=== PATIENT | male | born 1995 | race Caucasian/White ===

== ENCOUNTER 2016-09-20 19:05 | Emergency (ER) | payer OTHER ==
--- NOTE | 2016-09-20 21:43 | ED ---
Throat Pain/Nasal Congestion - HPI Summary HPI Summary: 21M presents with recurrent strept infections in the past month. He was initially on zpack for first infection and then he was placed on clindamycin when he started to notice some joint pain. The doctor told him that his joint pain should have get better after he finished his course of clindamycin but he states that it has gotten worst. He also admits to night sweats saying that he wakes up drenched. He admits to decrease in appetite and to 20 lbs of unintentional weight loss. He admits to generalized lymphadenopathy of neck, right arm pit and groin. He said that his monospot was negative but they have been treating him like he has mono as he has splenomegaly. He is following up with his uncle who is an oncologist due to have a strong family history of Hodgkin lymphoma. He states that today he has been having intermittent chest pain with SOB with it. He states that deep breathing makes it worst. 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 He states that his knees and hips hurt him the most but all of his joints hurt. He denies any abdominal pain or sore throat currently. He states that his uncle was concerned for rheumatic fever. - History of Current Complaint Chief Complaint: EDGeneral Time Seen by Provider: 09/20/16 20:17 - Allergies/Home Medications Allergies/Adverse Reactions: Allergies Allergy/AdvReac Type Severity Reaction Status Date / Time Penicillins [PCN] Allergy Unknown Verified 09/20/16 19:17 Reaction Details PMH/Surg Hx/FS Hx/Imm Hx Endocrine/Hematology History: Denies: Hx Anticoagulant Therapy Cardiovascular History: Denies: Hx Hypertension - Immunization History Date of Tetanus Vaccine: utd Date of Influenza Vaccine: utd Infectious Disease History: No Infectious Disease History: Denies: Traveled Outside the [place] in Last 30 Days - Family History Known Family History: Positive: Other - lymphoma - Social History Alcohol Use: None Substance Use Type: Reports: None Smoking Status (MU): Never Smoked Tobacco Review of Systems Positive: Other - night sweats Positive: Other - lymphadenopathy. Negative: Sore Throat Positive: Chest Pain Positive: Shortness Of Breath Positive: Myalgia - joint pain All Other Systems Reviewed And Are Negative: Yes Physical Exam Triage Information Reviewed: Yes Vital Signs On Initial Exam: Initial Vitals Temp Pulse Resp Pulse Ox 97.5 F 69 16 99 09/20/16 19:05 09/20/16 19:05 09/20/16 19:05 09/20/16 19:05 Vital Signs Reviewed: Yes Appearance: Positive: Well-Appearing Skin: Positive: Warm, Dry Head/Face: Positive: Normal Head/Face Inspection Eyes: Positive: Normal, Conjunctiva Clear ENT: Positive: Normal ENT inspection, Pharynx normal, TMs normal Neck: Positive: Enlarged Nodes @ - all neck lymph nodes and right arm pit Respiratory/Lung Sounds: Positive: Clear to Auscultation, Breath Sounds Present Cardiovascular: Positive: Normal, RRR Abdomen Description: Positive: Nontender, Soft Bowel Sounds: Positive: Present - Griffin Coma Scale Coma Scale Total: 15 Diagnostics - Vital Signs Vital Signs Temp Pulse Resp BP Pulse Ox 09/20/16 19:10 97.5 F 69 16 148/63 99 09/20/16 19:05 97.5 F 69 16 99 - Laboratory Result Diagrams: 09/20/16 21:30 09/20/16 21:30 Lab Statement: Any lab studies that have been ordered have been reviewed, and results considered in the medical decision making process. - EKG No standard instances Cardiac Rate: Bradycardia EKG Rhythm: Sinus Rhythm EKG Interpretation: incomplete RBBB normal for patient EENT Course/Dx - Course Course Of Treatment: 21M presents with recurrent strept infections with last dose of clindamycin 09/15. admits to joint pain, night sweats, weight loss, decreases in appetite, and generalized lymph adenopathy. he has family history of lymphoma. on exam no joints are noted to be red or swollen. no rash is not on exam. no murmur heard on exam. had chest xray done thursday and was normal. EKG normal for him as had previous RBBB. labs: wbc 5, crp<.2, CPK normal, ESR 7. troponin normal. does not met moraes criteria for rheumatic fever as joints do not appear inflammed, no rash present, ESR/CRP normal. spoke with dr granados and she agrees that lab do not suggest rheumatic fever but that should have follow up for lymphadenopathy for potential for lymphoma. explained chest pain is likely costrochondritis so should take ibuprofen for it as labs normal. patient understands and agrees with plan - Differential Diagnoses Differential Diagnoses: Other - mono, lymphoma, rheumatic fever - Diagnoses Provider Diagnoses: Generalized lymphadenopathy, Joint pain, Night sweats, Chest wall pain Discharge - Discharge Plan Condition: Stable Disposition: HOME Patient Education Materials: Lymphadenopathy (ED) Referrals: Non Staff,Doctor [Primary Care Provider] - [facility] @ [Outside] Additional Instructions: Follow up with oncology about generalized lymphadenopathy for further work up Take Tylenol or ibuprofen for joint pain and chest pain every 6 hours Return to ED if develop any new or worsening symptoms
[2016-09-20 21:46] LABS: Hematocrit 47 % (42-52); Hemoglobin 15.7 g/dl (14.0-18.0); Mean Corpuscular HGB Conc 33 g/dl (31-36); Mean Corpuscular Hemoglobin 30 pg (27-31); Mean Corpuscular Volume 91 fL (80-94); Mean Platelet Volume 9 um3 (7.4-10.4); Red Blood Count 5.22 10^6/ul (4.0-5.4); Red Cell Distribution Width 13 % (10.5-15); White Blood Count 6.3 10^3/ul (3.5-10.8)
[2016-09-20 22:02] LABS: ALT 11 U/L (7-52); AST 17 U/L (13-39); Albumin 4.5 g/dL (3.2-5.2); Alkaline Phosphatase 44 U/L (34-104); Anion Gap 6 mmol/L (2-11); BUN/Creatinine Ratio 18.3 (8-20); Blood Urea Nitrogen 17 mg/dL (6-24); CO2 Carbon Dioxide 29 mmol/L (22-32); Calcium 9.6 mg/dL (8.6-10.3); Chloride 102 mmol/L (101-111); Creatine Kinase 79 U/L (10-223); EGFR African American 133.2 (>60); EGFR Non-African American 103.6 (>60); Globulin 2.7 g/dL (2-4); Glucose 95 mg/dL (70-100); Potassium 3.8 mmol/L (3.5-5.0); Sodium 137 mmol/L (133-145); Total Protein 7.2 g/dL (6.4-8.9)
[2016-09-20 22:48] LABS: Erythrocyte Sed Rate 7 mm/Hr (0-14)
[2016-09-20 23:05] VITALS: BP 128/70
== END 2016-09-20 23:04 | disposition home or self-care (01) ==
LOC: ED 19:05
DX: R59.1 Generalized enlarged lymph nodes (principal); R07.89 Other chest pain; M25.50 Pain in unspecified joint; R06.02 Shortness of breath; R61 Generalized hyperhidrosis
CPT/HCPCS: 36415; 80053; 82550; 83605; 84484; 85025; 85652; 86141; 93005; 99282

== ENCOUNTER → 2016-10-30 02:32 | Emergency (ER) | payer OTHER ==
[2016-10-30 03:00] VITALS: BP 128/79
[2016-10-30 04:29] LABS: Urine Bilirubin Negative (Negative); Urine Glucose Negative (Negative); Urine Nitrite Negative (Negative)
[2016-10-30 04:32] LABS: Benzodiazepine Urine Screen None Detected (None Detect)
[2016-10-30 05:21] LABS: Hematocrit 45 % (42-52); Hemoglobin 15.1 g/dl (14.0-18.0); Mean Corpuscular HGB Conc 34 g/dl (31-36); Mean Corpuscular Hemoglobin 30 pg (27-31); Mean Corpuscular Volume 89 fL (80-94); Mean Platelet Volume 10 um3 (7.4-10.4); Red Blood Count 5.03 10^6/ul (4.0-5.4); Red Cell Distribution Width 13 % (10.5-15); White Blood Count 7.3 10^3/ul (3.5-10.8)
[2016-10-30 05:44] LABS: Albumin 4.5 g/dL (3.2-5.2); BUN/Creatinine Ratio 14.7 (8-20); Calcium 9.5 mg/dL (8.6-10.3); EGFR Non-African American 101.1 (>60); Globulin 2.7 g/dL (2-4); Potassium 3.3 mmol/L (3.5-5.0); Total Bilirubin 1.2 mg/dL (0.2-1.0); Total Protein 7.2 g/dL (6.4-8.9)
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
[2016-10-30 12:27] LABS: Manual Entry Verification GRE0060; Rapid HIV INT CONT QC Line Present; Rapid HIV Kit Lot# F336002
== END | disposition home or self-care (01) ==
LOC: ED 02:32
DX: T74.21XA Adult sexual abuse, confirmed, initial encounter (principal); R41.82 Altered mental status, unspecified; F10.129 Alcohol abuse with intoxication, unspecified; R11.0 Nausea
CPT/HCPCS: 36415; 80053; 80307; 80320; 81003; 83605; 85025; 86703; 86706; 86803; 87340; 99281; G0480

== ENCOUNTER 2017-04-14 22:06 | Emergency (ER) | payer OTHER ==
[2017-04-14] MEDS ORDERED: Aspirin Low Dose CHEW TAB* 81 MG PO ONE (23:44)
[2017-04-15 00:44] LABS: Albumin 4.3 g/dL (3.2-5.2); BUN/Creatinine Ratio 15.6 (8-20); Calcium 9.1 mg/dL (8.6-10.3); EGFR African American 110.9 (>60); EGFR Non-African American 86.2 (>60); Globulin 2.2 g/dL (2-4); Magnesium 1.9 mg/dL (1.9-2.7); Potassium 3.9 mmol/L (3.5-5.0); Total Bilirubin 2.2 mg/dL (0.2-1.0); Total Protein 6.5 g/dL (6.4-8.9)
[2017-04-15 02:56] LABS: Hematocrit 44 % (42-52); Hemoglobin 14.5 g/dl (14.0-18.0); Mean Corpuscular HGB Conc 33 g/dl (31-36); Mean Corpuscular Hemoglobin 30 pg (27-31); Mean Corpuscular Volume 91 fL (80-94); Mean Platelet Volume 9 um3 (7.4-10.4); Red Blood Count 4.85 10^6/ul (4.0-5.4); Red Cell Distribution Width 14 % (10.5-15); White Blood Count 6.6 10^3/ul (3.5-10.8)
[2017-04-15 04:10] VITALS: BP 114/64
--- NOTE | 2017-04-15 07:48 | RAD ---
INDICATION: Chest pain COMPARISON: Similar chest x-ray September 18, 2016 TECHNIQUE: PA and lateral views of the chest were obtained. FINDINGS: The heart and mediastinum are normal in size and contour. The lungs are grossly clear. There is no evidence of large pleural effusion. Visualized bones are normal for the patient's age. There is no radiographic evidence of free air beneath the diaphragm IMPRESSION: No radiographic evidence of acute cardiopulmonary disease.
--- NOTE | 2017-04-16 04:24 | ED ---
Chago Augustine Benjamin, scribed for Minnie Taylor MD on 04/14/17 at 2356 . HPI Chest Pain - HPI Summary HPI Summary: 21yo male c/o left anterior chest pain that radiates to left shoulder. Pain started at 6pm and pain has been constant but intermittently worsening. Pt describes the pain as sharp stabbing at left anterior and dull pain at left shoulder. 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 His BP at home was 190/90 and pulse of 78bpm. Pt also had SOB, N/V earlier but now resolved. 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 Denies cough or sore throat. No prior hx of CP. Hx of RBBB for 4 years. Pt has vitamin D deficiency and takes vitamin D supplements. Pt had a cardiac Echo last summer. 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 No alcohol. No substance abuse. No tobacco. Pt states his RBBB was discovered incidentally when he was learning to do EKG's and an EKG was done on him for demonstration purposes and found to show RBBB. Medication list: Vitamin D 5000mg Effexor for PTSD. - History of Current Complaint Chief Complaint: EDChestPainROMI Time Seen by Provider: 04/14/17 23:17 Hx Obtained From: Patient Onset/Duration: Started Hours Ago, Still Present Timing: Constant Initial Severity: Moderate Current Severity: Moderate Pain Intensity: 10 Pain Scale Used: 0-10 Numeric Chest Pain Location: Left Anterior Chest Pain Radiates: Yes Chest Pain Radiates To:: Shoulder - left Character: Dull/Aching, Sharp/Stabbing Aggravating Factor(s): Nothing Alleviating Factor(s): Nothing Associated Signs and Symptoms: Positive: Shortness of Breath, Nausea, Vomiting. Negative: Cough - Allergy/Home Medications Allergies/Adverse Reactions: Allergies Allergy/AdvReac Type Severity Reaction Status Date / Time No Known Allergies Allergy Verified 04/14/17 22:11 PMH/Surg Hx/FS Hx/Imm Hx Previously Healthy: No - RBBB Endocrine/Hematology History: Denies: Hx Anticoagulant Therapy Cardiovascular History: Denies: Hx Hypertension - Surgical History Surgery Procedure, Year, and Place: none - Immunization History Date of Tetanus Vaccine: utd Date of Influenza Vaccine: utd Infectious Disease History: No Infectious Disease History: Denies: Traveled Outside the US in Last 30 Days - Family History Known Family History: Positive: Other - Hodgkins lymphoma (mother) - Social History Occupation: Employed Full-time Alcohol Use: None Substance Use Type: Reports: None Smoking Status (MU): Never Smoked Tobacco Review of Systems Constitutional: Negative Eyes: Negative ENT: Negative Positive: Chest Pain Positive: Shortness Of Breath Positive: Vomiting, Nausea Genitourinary: Negative Positive: no symptoms reported Musculoskeletal: Negative Skin: Negative Neurological: Negative Psychological: Normal All Other Systems Reviewed And Are Negative: Yes Physical Exam Triage Information Reviewed: Yes Vital Signs On Initial Exam: Initial Vitals Temp Pulse Resp BP Pulse Ox 97.4 F 83 18 157/81 97 04/14/17 22:07 04/14/17 22:07 04/14/17 22:07 04/14/17 22:07 04/14/17 22:07 Vital Signs Reviewed: Yes Appearance: Positive: Well-Appearing, Well-Nourished, Pain Distress - mild. Negative: No Pain Distress Skin: Positive: Warm, Skin Color Reflects Adequate Perfusion Head/Face: Positive: Normal Head/Face Inspection Eyes: Positive: Conjunctiva Clear ENT: Positive: Normal ENT inspection Neck: Positive: Supple Respiratory/Lung Sounds: Positive: Clear to Auscultation, Breath Sounds Present Cardiovascular: Positive: RRR, Pulses are Symmetrical in both Upper and Lower Extremities. Negative: Murmur Abdomen Description: Positive: Nontender, Soft Bowel Sounds: Positive: Present Musculoskeletal: Positive: Strength/ROM Intact Neurological: Positive: Sensory/Motor Intact, Alert, Oriented to Person Place, Time, Facial Symmetry, Speech Normal Psychiatric: Positive: Affect/Mood Appropriate - [place] Coma Scale Coma Scale Total: 15 Diagnostics - Vital Signs Vital Signs Temp Pulse Resp BP Pulse Ox 04/14/17 22:07 97.4 F 83 18 157/81 97 - Laboratory Lab Results: Lab Results 04/14/17 04/14/17 04/14/17 Range/Units 00:08 00:08 00:08 WBC 6.6 (3.5-10.8) 10^3/ul RBC 4.85 (4.0-5.4) 10^6/ul Hgb 14.5 (14.0-18.0) g/dl Hct 44 (42-52) % MCV 91 (80-94) fL MCH 30 (27-31) pg MCHC 33 (31-36) g/dl RDW 14 (10.5-15) % Plt Count 150 (150-450) 10^3/ul MPV 9 (7.4-10.4) um3 Neut % (Auto) 53.0 (38-83) % Lymph % (Auto) 35.2 (25-47) % [place] % (Auto) 8.9 (1-9) % Eos % (Auto) 2.1 (0-6) % Baso % (Auto) 0.8 (0-2) % Absolute Neuts (auto) 3.5 (1.5-7.7) 10^3/ul Absolute Lymphs (auto) 2.3 (1.0-4.8) 10^3/ul Absolute Monos (auto) 0.6 (0-0.8) 10^3/ul Absolute Eos (auto) 0.1 (0-0.6) 10^3/ul Absolute Basos (auto) 0.1 (0-0.2) 10^3/ul Absolute Nucleated RBC 0.01 10^3/ul Nucleated RBC % 0.2 INR (Anticoag Therapy) 1.06 (0.89-1.11) D-Dimer, Quantitative < 200 (Less Than 230) ng/mL Sodium 136 (133-145) mmol/L Potassium 3.9 (3.5-5.0) mmol/L Chloride 105 (101-111) mmol/L Carbon Dioxide 26 (22-32) mmol/L Anion Gap 5 (2-11) mmol/L BUN 17 (6-24) mg/dL Creatinine 1.09 (0.67-1.17) mg/dL Est GFR ( Amer) 110.9 (>60) Est GFR (Non-Af Amer) 86.2 (>60) BUN/Creatinine Ratio 15.6 (8-20) Glucose 102 H (70-100) mg/dL Lactic Acid (0.5-2.0) mmol/L Calcium 9.1 (8.6-10.3) mg/dL Magnesium 1.9 (1.9-2.7) mg/dL Total Bilirubin 2.20 H (0.2-1.0) mg/dL AST 14 (13-39) U/L ALT 9 (7-52) U/L Alkaline Phosphatase 38 (34-104) U/L Total Creatine Kinase 86 (10-223) U/L CK-MB (CK-2) 1.3 (0.6-6.3) ng/mL Troponin I 0.00 (<0.04) ng/mL Total Protein 6.5 (6.4-8.9) g/dL Albumin 4.3 (3.2-5.2) g/dL Globulin 2.2 (2-4) g/dL Albumin/Globulin Ratio 2.0 (1-3) TSH 3.00 (0.34-5.60) mcIU/mL 04/14/17 04/15/17 Range/Units 03:00 03:00 WBC (3.5-10.8) 10^3/ul RBC (4.0-5.4) 10^6/ul Hgb (14.0-18.0) g/dl Hct (42-52) % MCV (80-94) fL MCH (27-31) pg MCHC (31-36) g/dl RDW (10.5-15) % Plt Count (150-450) 10^3/ul MPV (7.4-10.4) um3 Neut % (Auto) (38-83) % Lymph % (Auto) (25-47) % [place] % (Auto) (1-9) % Eos % (Auto) (0-6) % Baso % (Auto) (0-2) % Absolute Neuts (auto) (1.5-7.7) 10^3/ul Absolute Lymphs (auto) (1.0-4.8) 10^3/ul Absolute Monos (auto) (0-0.8) 10^3/ul Absolute Eos (auto) (0-0.6) 10^3/ul Absolute Basos (auto) (0-0.2) 10^3/ul Absolute Nucleated RBC 10^3/ul Nucleated RBC % INR (Anticoag Therapy) (0.89-1.11) D-Dimer, Quantitative (Less Than 230) ng/mL Sodium (133-145) mmol/L Potassium (3.5-5.0) mmol/L Chloride (101-111) mmol/L Carbon Dioxide (22-32) mmol/L Anion Gap (2-11) mmol/L BUN (6-24) mg/dL Creatinine (0.67-1.17) mg/dL Est GFR ( Amer) (>60) Est GFR (Non-Af Amer) (>60) BUN/Creatinine Ratio (8-20) Glucose (70-100) mg/dL Lactic Acid 0.5 (0.5-2.0) mmol/L Calcium (8.6-10.3) mg/dL Magnesium (1.9-2.7) mg/dL Total Bilirubin (0.2-1.0) mg/dL AST (13-39) U/L ALT (7-52) U/L Alkaline Phosphatase (34-104) U/L Total Creatine Kinase (10-223) U/L CK-MB (CK-2) (0.6-6.3) ng/mL Troponin I 0.00 (<0.04) ng/mL Total Protein (6.4-8.9) g/dL Albumin (3.2-5.2) g/dL Globulin (2-4) g/dL Albumin/Globulin Ratio (1-3) TSH (0.34-5.60) mcIU/mL Result Diagrams: 04/14/17 00:08 04/14/17 00:08 Lab Statement: Any lab studies that have been ordered have been reviewed, and results considered in the medical decision making process. - Radiology CXR Xray Interpretation: No Acute Changes Radiology Interpretation Completed By: ED Physician - EKG 2211 Cardiac Rate: NL - 67bpm EKG Rhythm: Sinus Rhythm ST Segment: Non-Specific Ectopy: None EKG Interpretation: Normal AV, prolonged IVCT, RBBB, nl QTC, and nl [place]. Non STEMI. EKG Comparison: Other - none, but pt states RBBB is old Re-Evaluation - Re-Evaluation First Eval Re-Evaluation Time: 03:52 Change: Improved Comment: Final BP and HR was 118/61 and 60bpm. Pt denies any CP at the time. Informed pt's lab results and discharged instructions. Chest Pain Course/Dx - Course Course Of Treatment: Reviewed pts medication and allergy lists. High Blood pressure noted. - Chest Pain Differential Diagnosis/HQI/PQRI: ACS, Chest Wall, GI Disease, Lower Respiratory Infection - Diagnoses Provider Diagnoses: Chest pain, Elevated blood pressure reading without diagnosis of hypertension Discharge - Discharge Plan Condition: Stable Disposition: HOME Patient Education Materials: Chest Pain (ED) Forms: *Work Release [facility] - [facility] [place] PHYSICIAN REFERRAL [Outside] Additional Instructions: PLEASE FOLLOW UP WITH YOUR SECURITY SYSTEMS ENGINEER. YOUR BILIRUBIN WAS ELEVATED TONIGHT, 2.20, HOWEVER THE REST OF THE LIVER FUNCTION TESTS WERE IN NORMAL RANGE. YOUR ELEVATED BILIRUBIN MAY BE DUE TO GILBERTS SYNDROME. RETURN TO EMERGENCY DEPARTMENT FOR ANY NEW OR WORSENING SYMPTOMS. The documentation as recorded by the Chago nelson Benjamin accurately reflects the service I personally performed and the decisions made by , Minnie Taylor MD.
== END 2017-04-15 04:08 | disposition home or self-care (01) ==
LOC: ED 22:06
DX: R07.9 Chest pain, unspecified (principal); R03.0 Elevated blood-pressure reading, without diagnosis of hypertension; R06.02 Shortness of breath; R11.2 Nausea with vomiting, unspecified
CPT/HCPCS: 36415; 71020; 80053; 82550; 82553; 83605; 83735; 84443; 84484; 85025; 85379; 85610; 93005; 99283; A9270-GY

== ENCOUNTER 2017-04-28 17:51 | Inpatient (IN) | payer OTHER ==
[2017-04-28 19:01] LABS: Hematocrit 47 % (42-52); Hemoglobin 15.5 g/dl (14.0-18.0); Mean Corpuscular HGB Conc 33 g/dl (31-36); Mean Corpuscular Hemoglobin 30 pg (27-31); Mean Corpuscular Volume 91 fL (80-94); Mean Platelet Volume 9 um3 (7.4-10.4); Red Blood Count 5.18 10^6/ul (4.0-5.4); Red Cell Distribution Width 14 % (10.5-15); White Blood Count 7.7 10^3/ul (3.5-10.8)
[2017-04-28 19:19] LABS: Anion Gap 6 mmol/L (2-11); BUN/Creatinine Ratio 15.1 (8-20); Blood Urea Nitrogen 16 mg/dL (6-24); CO2 Carbon Dioxide 28 mmol/L (22-32); Chloride 103 mmol/L (101-111); Glucose 95 mg/dL (70-100); Potassium 4.3 mmol/L (3.5-5.0); Sodium 137 mmol/L (133-145)
[2017-04-28 19:20] LABS: ALT 8 U/L (7-52); AST 14 U/L (13-39); Albumin 4.7 g/dL (3.2-5.2); Alkaline Phosphatase 37 U/L (34-104); Calcium 9.7 mg/dL (8.6-10.3); EGFR African American 114.5 (>60); EGFR Non-African American 89.1 (>60); Globulin 2.4 g/dL (2-4); Total Protein 7.1 g/dL (6.4-8.9)
[2017-04-28 19:22] LABS: Urine Bilirubin Negative (Negative); Urine Glucose Negative (Negative); Urine Nitrite Negative (Negative)
[2017-04-28 19:45] LABS: Benzodiazepine Urine Screen None Detected (None Detect)
[2017-04-28 19:45] LABS: Acetaminophen < 15 mcg/mL; Alcohol < 10 mg/dL (<10); Salicylate < 2.50 mg/dL (<30)
[2017-04-28 19:59] LABS: TSH (Thyroid Stimulating Horm) 1.51 mcIU/mL (0.34-5.60)
--- NOTE | 2017-04-29 06:33 | ED ---
Danielle Augustine Alfonso, scribed for Huan Barriga MD on 04/28/17 at 1944 . Psychiatric Complaint - HPI Summary HPI Summary: This patient is a 21 year old M brought in by police 941 to [facility] with a chief complaint of SI earlier today. He reports the SI is currently resolved. The patient rates the pain 0/10 in severity. Patient denies HI, abdominal pain, scleral icterus, and substance use today. - History Of Current Complaint Chief Complaint: EDMentalHealth Time Seen by Provider: 04/28/17 18:36 Hx Obtained From: Patient Onset/Duration: Gradual Onset, Resolved Timing: Constant Has Suicidal: Reports: Thoughts Has Homicidal: Denies: Thoughts - Allergies/Home Medications Allergies/Adverse Reactions: Allergies Allergy/AdvReac Type Severity Reaction Status Date / Time No Known Allergies Allergy Verified 04/14/17 22:11 Home Medications: Home Medications Venlafaxine EXT RELEASE CAP* [Effexor Xr CAP*] 37.5 mg PO QAM 04/28/17 [History Confirmed 04/28/17] lamoTRIgine TAB(*) [LaMICtal TAB(*)] 37.5 mg PO BEDTIME 04/28/17 [History Confirmed 04/28/17] PMH/Surg Hx/FS Hx/Imm Hx Endocrine/Hematology History: Denies: Hx Anticoagulant Therapy Cardiovascular History: Reports: Other Cardiovascular Problems/Disorders - RIGHT BUNDLE BRANCH BLOCK Denies: Hx Hypertension Sensory History: Denies: Hx Deafness Opthamlomology History: Denies: Hx Legally Blind EENT History: Denies: Hx Deafness - Surgical History Surgery Procedure, Year, and Place: none - Immunization History Date of Tetanus Vaccine: UTD Date of Influenza Vaccine: NO Infectious Disease History: No Infectious Disease History: Denies: Traveled Outside the US in Last 30 Days - Family History Known Family History: Positive: Other - Hodgkins lymphoma (mother) - Social History Alcohol Use: None Hx Substance Use: No Substance Use Type: Reports: None Hx Tobacco Use: No Smoking Status (MU): Never Smoked Tobacco Review of Systems Positive: Other - Negative scleral icterus Negative: Abdominal Pain Neurological: Other - SI; negative HI, substance use today All Other Systems Reviewed And Are Negative: Yes Physical Exam - Summary Physical Exam Summary: General: well-appearing, no pain distress Skin: warm, color reflects adequate perfusion, dry Head: normal Eyes: EOMI, YAMEL ENT: normal Neck: supple, nontender Respiratory: CTA, breath sounds present Cardiovascular: RRR Abdomen: soft, nontender Bowel: present Musculoskeletal: normal, strength/ROM intact Neurological: normal, sensory/motor intact, A&O x3 Psychological: affect/mood appropriate Triage Information Reviewed: Yes Vital Signs On Initial Exam: Initial Vitals Temp Pulse Resp BP Pulse Ox 98.7 F 104 18 145/79 98 04/28/17 17:55 04/28/17 17:55 04/28/17 17:55 04/28/17 17:55 04/28/17 17:55 Vital Signs Reviewed: Yes - [place] Coma Scale Coma Scale Total: 15 Diagnostics - Vital Signs Vital Signs Temp Pulse Resp BP Pulse Ox 04/28/17 17:55 98.7 F 104 18 145/79 98 - Laboratory Lab Results: Lab Results 04/28/17 04/28/17 04/28/17 Range/Units 18:10 18:51 18:51 WBC 7.7 (3.5-10.8) 10^3/ul RBC 5.18 (4.0-5.4) 10^6/ul Hgb 15.5 (14.0-18.0) g/dl Hct 47 (42-52) % MCV 91 (80-94) fL MCH 30 (27-31) pg MCHC 33 (31-36) g/dl RDW 14 (10.5-15) % Plt Count 171 (150-450) 10^3/ul MPV 9 (7.4-10.4) um3 Neut % (Auto) 75.3 (38-83) % Lymph % (Auto) 17.8 L (25-47) % [place] % (Auto) 5.7 (1-9) % Eos % (Auto) 0.3 (0-6) % Baso % (Auto) 0.9 (0-2) % Absolute Neuts (auto) 5.8 (1.5-7.7) 10^3/ul Absolute Lymphs (auto) 1.4 (1.0-4.8) 10^3/ul Absolute Monos (auto) 0.4 (0-0.8) 10^3/ul Absolute Eos (auto) 0 (0-0.6) 10^3/ul Absolute Basos (auto) 0.1 (0-0.2) 10^3/ul Absolute Nucleated RBC 0 10^3/ul Nucleated RBC % 0 Sodium 137 (133-145) mmol/L Potassium 4.3 (3.5-5.0) mmol/L Chloride 103 (101-111) mmol/L Carbon Dioxide 28 (22-32) mmol/L Anion Gap 6 (2-11) mmol/L BUN 16 (6-24) mg/dL Creatinine 1.06 (0.67-1.17) mg/dL Est GFR ( Amer) 114.5 (>60) Est GFR (Non-Af Amer) 89.1 (>60) BUN/Creatinine Ratio 15.1 (8-20) Glucose 95 (70-100) mg/dL Calcium 9.7 (8.6-10.3) mg/dL Total Bilirubin 2.40 H (0.2-1.0) mg/dL AST 14 (13-39) U/L ALT 8 (7-52) U/L Alkaline Phosphatase 37 (34-104) U/L Total Protein 7.1 (6.4-8.9) g/dL Albumin 4.7 (3.2-5.2) g/dL Globulin 2.4 (2-4) g/dL Albumin/Globulin Ratio 2.0 (1-3) TSH Pending Urine Color Yellow Urine Appearance Clear Urine pH 5.0 (5-9) Ur Specific [place] 1.029 (1.010-1.030) Urine Protein Negative (Negative) Urine Ketones Negative (Negative) Urine Blood Negative (Negative) Urine Nitrate Negative (Negative) Urine Bilirubin Negative (Negative) Urine Urobilinogen Negative (Negative) Ur Leukocyte Esterase Negative (Negative) Urine Glucose Negative (Negative) Salicylates Pending Acetaminophen Pending Serum Alcohol Pending Result Diagrams: 04/28/17 18:51 04/28/17 18:51 Lab Statement: Any lab studies that have been ordered have been reviewed, and results considered in the medical decision making process. Course/Dx - Course Course Of Treatment: MHE PENDING AT SHIFT CHANGE. - Differential Dx/Clinical Impression Provider Diagnosis: Mental health problem Discharge - Discharge Plan Condition: Stable Disposition: OTHER Discharge Disposition Comment: . [facility] - The documentation as recorded by the Danielle nelson Alfonso accurately reflects the service I personally performed and the decisions made by me, Huan Barriga MD.
[2017-04-29] MEDS ORDERED: Al Hydrox/Mg Hydrox/Simet LIQ* 30 ML UDC PO PRN (10:19)
[2017-04-29] MEDS ORDERED: Acetaminophen TAB* 325 MG PO PRN (10:19)
--- NOTE | 2017-04-29 10:30 | CONSULT ---
Consult Consult: Mr. Felix came in on a previous shift with depression and suicidal ideation. He was medically cleared and had a MHE. They recommended involuntary admit. He is being admitted in stable condition with a diagnosis of depression with suicidal ideation.
[2017-04-29] MEDS: lamoTRIgine TAB(*) 25 MG PO SCH (13:09)
[2017-04-29] MEDS: Venlafaxine EXT RELEASE CAP* 37.5 MG PO SCH (13:09)
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
[2017-04-30] MEDS: Venlafaxine EXT RELEASE CAP* 37.5 MG PO SCH ×2 (06:37→07:21)
[2017-04-30] MEDS: lamoTRIgine TAB(*) 25 MG PO SCH ×2 (06:37→07:21)
[2017-04-30] MEDS ORDERED: Influenza VAC *QUAD* 2017-18* 0.5 ML SYRINGE IM ONE (09:00)
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
[2017-05-01] MEDS: Venlafaxine EXT RELEASE CAP* 37.5 MG PO SCH ×2 (06:34→07:41)
[2017-05-01] MEDS: lamoTRIgine TAB(*) 25 MG PO SCH ×2 (06:35→07:41)
[2017-05-01 08:11] VITALS: BP 116/63
--- NOTE | 2017-05-02 10:50 | DS ---
DISCHARGE SUMMARY: DATE OF ADMISSION: 04/29/17 DATE OF DISCHARGE: 05/01/17 REFERRING PSYCHIATRIST: Dr. Chai Hicks * (DICTATED BY DINA NELSON NP) DISCHARGE DIAGNOSES: PTSD by history, unspecified depressive disorder, rule out borderline personality disorder. CONDITION AT THE TIME OF DISCHARGE: Improved. The patient has been euthymic and appropriate in behavioral control during his inpatient hospitalization. He reports that he is looking forward to going home to [place] to visit with family over the . Also he will meet with his psychiatrist of three years, with whom he has a good rapport. Patient denies suicidal ideation or urges for self harm. We discussed his vulnerability for emotional reactivity and he is knowledgeable about various ways to start improving these. Patient is encouraged to continue to improve his honesty with himself and with his loved ones and to continue improving communication efforts. The patient had appropriate questions about medications and treatment for depression and mood dysregulation. These were answered. He has arranged transportation with his friend Mahi to return to [place] for the . Treer spoke with Mahi and with patient's mother Anjelica to validate transportation plans. MENTAL STATUS EXAM: Patient is a thin framed, healthy-appearing 21-year-old male. His hair is short with top dyed blonde. He is wearing his own clothing and well groomed. No abnormal psychomotor activity noted. He is cooperative and answers questions fully and is a good historian. He is alert and oriented x3. His concentration is good. His memory is 3/3. His mood is "good." He presents with full range of affect. His speech is normal rate and rhythm. Thought process is logical, goal directed. Content of thought is negative for SI or SIB urges. He denies AV, hallucinations, HI or . His insight is good. His judgment is good. His fund of knowledge is excellent. DISCHARGE INSTRUCTIONS: Discharge instructions to the patient: A. Medications: No changes were made during his hospitalization. He denies need for refills. He will continue on his previous outpatient medications of venlafaxine XR 37.5 mg p.o. daily, and Lamotrigine 25 mg p.o. daily. B. Diet is regular. C. Activities : As tolerated. Tobacco cessation not applicable and there are no labs or diagnostic studies pending at the time of discharge. D. Follow-up care: The patient will meet with his psychiatrist, Dr. Hardy on Sunday 05/06 and upon return to [place] at [facility] he will meet with legal services manager Angela Ibarra. E. Substance use followup not applicable. Patient declined offer of substance use referrals for alcohol use. HOSPITAL COURSE: A. Reason for admission: The patient presented to the emergency department via 9.45 by [facility] police who had been notified that patient sent a text to his ex-boyfriend stating that he had plans for suicide and instructions for his money and his dog, post mortem. B. Psychiatric treatment rendered: The patient has participated in psychiatric interview and with assessments by nursing and social work and psychiatry staff. He was primarily forthcoming with his psychiatric history. However, he minimized his recent suicidality. He reported chaotic upbringing and cause for PTSD. He reports that current medication that is prescribed by his outpatient psychiatrists were helping in regards to PTSD symptoms. He had recently started lamotrigine after breakup with his boyfriend. He is currently in the midst of a titration and stated understanding of expected effect as well as side effects. The patient was pleasant on the unit and in behavioral control. He was interactive with staff and select peers. He was cooperative with discharge planning processes including collaboration with his mother and his friend Mahi. He was decreased to 30 minute observation and allowed a staff pass. He reported sleeping well. He was present for groups and meals. He was safe on all checks and denies suicidal ideation or passive wish. He preferred to be discharged before the weekend in order to coordinate with friends to return to [place]. Treer called friend and his mother who vouched for him that these plans were in fact in process. Patient denied abuse of alcohol except for recent intoxication related to break up. He denied need for substance use treatment referrals. The patient responded well to psychoeducation specifically in regards to emotional regulation. He is agreeable to follow at the [facility] [place] for groups and individual therapy. Patient states understanding to call the unit or return to nearest ED with questions or concerns. DINA NELSON, REEMA [id number]/[facility] #: [id number] [facility]
== END 2017-05-01 11:20 | disposition home or self-care (01) | DRG 755 ==
LOC: ED 17:51 → BSU 04-29 10:19
PROVIDERS: ADMIT Psychiatry & Neurology Psychiatry; ATTEND Psychiatry & Neurology Psychiatry
DX: F43.10 Post-traumatic stress disorder, unspecified (principal); F32.9 Major depressive disorder, single episode, unspecified; F60.3 Borderline personality disorder
CPT/HCPCS: 36415; 80053; 80074; 80175; 80307; 80320; 80329; 81003; 84443; 85025; 90686; 99222; 99232; 99238; A9270-GY; G0480